=== PATIENT | male | born 1995 | race African-American/Black ===

== ENCOUNTER 2018-06-30 22:39 | Emergency (ER) | payer SELFPAY ==
[2018-06-30 22:55] VITALS: BP 128/91
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
[2018-07-01] MEDS ORDERED: Amoxicillin/Clavulanate K 875-125 MG Tab PO ONE (01:58)
--- NOTE | 2018-07-01 07:16 | CT ---
CT facial bones Technique: Multiple axial sections through the facial bones were obtained. Reconstructed coronal and sagittal images were reviewed. Comparison: No previous facial exam. Findings: Soft tissue swelling is seen within the left cheek. Slightly comminuted fracture is identified within the inferior and anterior left maxillary sinus. Inward displacement of fracture fragments by approximately 8.7 mm is seen. Soft tissue density noted within the left maxillary sinus is compatible with blood. Soft tissue air is seen within the soft tissues outside the maxillary sinus. No additional fracture is definitely appreciated. Impression: 1. Soft tissue swelling within the left cheek. 2. Slightly comminuted fracture within the inferior and anterior left maxillary sinus with inward displacement of fragments up to 8.7 mm. 3. No additional facial bone fracture is definitely appreciated. Diagnostic code #3 I agree with preliminary report from [facility], finalized on 07/01/18, 1:07 AM Central Time
== END 2018-07-01 02:24 | disposition home or self-care (01) ==
LOC: JD.ED 22:39
DX: S02.32XA Fracture of orbital floor, left side, initial encounter for closed fracture (principal); S02.19XA Other fracture of base of skull, initial encounter for closed fracture; S61.216A Laceration without foreign body of right little finger without damage to nail, initial encounter; S80.211A Abrasion, right knee, initial encounter; F17.210 Nicotine dependence, cigarettes, uncomplicated; Y04.2XXA Assault by strike against or bumped into by another person, initial encounter; Y09 Assault by unspecified means
CPT/HCPCS: 70486; 99284; A9270

== ENCOUNTER 2021-11-01 16:53 | Emergency (ER) | payer OTHER ==
[2021-11-01 17:08] VITALS: BP 135/90; PULSE 87
== END 2021-11-01 17:44 | disposition home or self-care (01) ==
LOC: JD.ED 16:53
DX: R07.81 Pleurodynia (principal); R07.1 Chest pain on breathing
CPT/HCPCS: 99282; 99284